=== PATIENT | male | born 1985 | race Two or more races ===

== ENCOUNTER → 2017-09-24 | Emergency (ER) | payer OTHER ==
[~2017-09-24] VITALS: Ht 180.3 cm; Wt 90.7 kg
[~2017-09-24] MED LIST: BUPROPION XL300 MG ORAL; GABAPENTIN600 MG ORAL; HYDROcodone/Acetamin 7.5/325 tab ORAL ONE; IBUPROFEN600 MG ORAL; NORCO 5-325 TA1 EACH ORAL; TRAZODONE HCL150 MG ORAL
[2017-09-24 17:16] VITALS: BP 105/65
--- NOTE | 2017-09-24 18:23 | Emergency Room Report ---
History of Present Illness General Chief Complaint: Lower Extremity Injury Source: Patient Present Illness HPI 32-year-old male presents to the emergency department complaining of 8/10 in severity acute onset localized pain to the right lateral knee x2 hours. Patient states that he was jogging and he felt a pop in the knee and had acute onset of this pain. Patient reports pain is exacerbated upon weightbearing and full flexion of his knee. Patient states that approximately 2 years ago he had knee injury with ligamental tear and meniscus tear that required surgery. He reports some mild swelling he states tenderness is primarily in the anterior portion of the knee. Denies trauma or fall otherwise. Denies numbness tingling or loss of sensation or gross motor movements of the extremities, incontinence of bowel or bladder. Denies CP, Palpitations, LOC, AMS, dizziness, Changes in Vision, Sensation, paresthesias, or a sudden severe headache. Allergies: Coded Allergies: AMOXICILLIN (Verified Allergy, Unknown, 09/24/17) PENICILLINS (Verified Allergy, Unknown, 09/24/17) Patient History Past Medical History: see triage record Past Surgical History: none Pertinent Family History: none Reviewed Nursing Documentation: PMH: Agreed, PSxH: Agreed Nursing Documentation-PMH Past Medical History: No History, Except For Hx Cardiac Problems: No - meniscus tear Hx Hypertension: No Hx Pacemaker: No Hx Asthma: No Hx COPD: No Hx Diabetes: No Hx Gastrointestinal Problems: No Hx Dialysis: No History Of Psychiatric Problem: Yes - ANXIETY Hx Neurological Problems: No Hx Cerebrovascular Accident: No Hx Seizures: No Review of Systems All Other Systems: negative except mentioned in HPI Physical Exam Vital Signs Date Time Temp Pulse Resp B/P (MAP) Pulse Ox O2 Delivery O2 Flow Rate FiO2 09/24/17 17:16 98.1 102 18 105/65 100 Room Air 98.1 Sp02 EP Interpretation: reviewed, normal General Appearance: no apparent distress, alert, GCS 15, non-toxic Head: normocephalic, atraumatic ENT: hearing grossly normal, normal voice Neck: full range of motion Respiratory: lungs clear, normal breath sounds, speaking full sentences Cardiovascular #1: regular rate, rhythm Musculoskeletal: back normal, normal range of motion, tender - TTP to the anterior and lateral right knee, mild swelling noted, FROM with pain upon full flexion, no significant increased laxity, negative anterior and posterior drawer sign. Neurologic: alert, oriented x3, responsive, motor strength/tone normal, sensory intact, speech normal, grossly normal Psychiatric: judgement/insight normal Skin: normal color, no rash, warm/dry, well hydrated Medical Decision Making [place] Attestation Dr. Calhoun is my supervising Physician whom patient management has been discussed with. Diagnostic Impression: Primary Impression: Right knee sprain Qualified Codes: S83.91XA - Sprain of unspecified site of right knee, initial encounter Additional Impression: Knee pain, acute Qualified Codes: M25.561 - Pain in right knee ER Course 32-year-old male presents to the emergency department complaining of 8/10 in severity acute onset localized pain to the right lateral knee x2 hours. Patient states that he was jogging and he felt a pop in the knee and had acute onset of this pain. Patient reports pain is exacerbated upon weightbearing and full flexion of his knee. Patient states that approximately 2 years ago he had knee injury with ligamental tear and meniscus tear that required surgery. He reports some mild swelling he states tenderness is primarily in the anterior portion of the knee. Denies trauma or fall otherwise. Denies numbness tingling or loss of sensation or gross motor movements of the extremities, incontinence of bowel or bladder. Denies CP, Palpitations, LOC, AMS, dizziness, Changes in Vision, Sensation, paresthesias, or a sudden severe headache. Ddx considered but are not limited to Fracture, dislocation, contusion, Sprain/ Strain/Spasm, Epidural abscess, Neoplastic mets. Vital signs: are WNL, pt. is afebrile H&PE are most consistent with musculoskeletal injury will perform imaging to r/ o fractures/dislocations. ORDERS: - X-ray Right Knee - negative for fx, Dislocation, or significant soft tissue injury, Visible hardware in the tibia and femur, no obvious effusion - per preliminary read in ED, and signed by ISRAEL Lucio, my supervising physician has reviewed, and agrees with my interpretation. ED INTERVENTIONS: - [place] PO - Knee Immobilizer Splint applied to the right knee by generation engineering technologist. Pt. remains neurovascularly intact. --Patient is provided with crutches and instructed on their use DISCHARGE: At this time pt. is stable for d/c to home. Will provide printed patient care instructions, and any necessary prescriptions. Care plan and follow up instructions have been discussed with the patient prior to discharge. Other X-Ray Diagnostic Results Other X-Ray Diagnostic Results : X-Ray ordered: Right Knee # of Views/Limited Vs Complete: 3 View Indication: Pain PA Xray: Interpretation reviewed, by supervising MD, and agrees with findings. Interpretation: no dislocation, no soft tissue swelling, no fractures, other - hardware noted in the distal femur and tibia. Impression: No acute disease Electronically Signed by: Tamiko Lucio PA-C Last Vital Signs Date Time Temp Pulse Resp B/P (MAP) Pulse Ox O2 Delivery O2 Flow Rate FiO2 09/24/17 17:16 98.1 102 18 105/65 100 Room Air 98.1 Disposition: HOME, SELF-CARE Condition: Stable Scripts Ibuprofen* (MOTRIN*) 600 Mg Tablet 600 MG ORAL THREE TIMES A DAY, #30 TAB 0 Refills Prov: Tamiko Lucio 09/24/17 Hydrocodone Bit/Acetaminophen 5-325* (NORCO 5-325*) 1 Each Tablet 1 TAB ORAL Q6H Y for For Pain, #6 TAB 0 Refills Prov: Tamiko Lucio 09/24/17 Referrals: [facility],REFERRING (PCP) Patient Instructions: Knee Sprain Additional Instructions: Take medications as directed. Follow up with an [facility] in 3-5 days, even if your symptoms have resolved. --Please review list of primary care clinics, if you do not already have a primary care provider Return sooner to ED if new symptoms occur, or current symptoms become worse. Do not drink alcohol, drive, or operate heavy machinery while taking [place] as this may cause drowsiness. - Please note that this Emergency Department Report was dictated using [employer] supervisor technology software, occasionally this can lead to erroneous entry secondary to interpretation by the dictation equipment. Tamiko Lucio Sep 24, 2017 18:23
--- NOTE | 2017-09-25 08:46 | Diagnostic Imaging Report ---
Indication: Knee pain Technique: 3 views of the right knee Comparison: None Findings: There is a small suprapatellar effusion. There are anchor screws from presumed prior anterior cruciate ligament surgery. Multiple presumed intra-articular loose bodies are seen in the posterior joint. There are medial and lateral osteophytes. No acute fractures. No dislocations. Impression: No acute bony trauma Postsurgical changes as described Suspect small effusion Probable intra-articular loose bodies Degenerative changes as described
== END | disposition home or self-care (01) ==
LOC: EMR 17:36
DX: S83.91XA Sprain of unspecified site of right knee, initial encounter (principal); X50.0XXA Overexertion from strenuous movement or load, initial encounter; Y93.02 Activity, running; Y92.89 Other specified places as the place of occurrence of the external cause; F41.9 Anxiety disorder, unspecified; Z88.0 Allergy status to penicillin
CPT/HCPCS: 99283

== ENCOUNTER → 2019-02-22 | Emergency (ER) | payer MEDICAID, OTHER ==
[~2019-02-22] VITALS: Ht 180.3 cm; Wt 100.7 kg
[~2019-02-22] MED LIST changes: +FLONASE ALLERG9.9 ML NS; +GUAIFENESI100 MG/5 M ORAL; -HYDROcodone/Acetamin 7.5/325 tab ORAL ONE; +OTEZLA1 EAC1 PO
--- NOTE | 2019-02-22 14:00 | NUR ---
ED Nurse Note:' pt waslked in due to sore throat and nasal congestion started yesterday. pt denies fever. seen by otilio murray. will continue to monitor
[2019-02-22 14:08] VITALS: BP 133/94
--- NOTE | 2019-02-22 14:10 | Emergency Room Report ---
History of Present Illness General Chief Complaint: Sore Throat Source: Patient Present Illness HPI 33-year-old male with history of depression currently controlled with medication here complaining of 2 days of cough and congestion. Patient reports that every morning that he has been waking up in the past 2 days he feels buildup of mucus inside his mouth and irritation of throat. Denies productive cough. Denies fever and chills, wheezing, chest pain, shortness of breath, palpitation, abdominal pain nausea vomiting. Has not taken medication to alleviate his symptoms. Patient denies history of smoking Allergies: Coded Allergies: AMOXICILLIN (Verified Allergy, Unknown, 09/24/17) PENICILLINS (Verified Allergy, Unknown, 09/24/17) Patient History Past Medical History: see triage record Past Surgical History: unable to obtain Pertinent Family History: none Immunizations: UTD Reviewed Nursing Documentation: PMH: Agreed; PSxH: Agreed Nursing Documentation-PMH Past Medical History: No History, Except For Hx Cardiac Problems: No - meniscus tear Hx Hypertension: No Hx Pacemaker: No Hx Asthma: No Hx COPD: No Hx Diabetes: No Hx Gastrointestinal Problems: No Hx Dialysis: No Hx Neurological Problems: No Hx Cerebrovascular Accident: No Hx Seizures: No Review of Systems All Other Systems: negative except mentioned in HPI Physical Exam Vital Signs Date Time Temp Pulse Resp B/P (MAP) Pulse Ox O2 Delivery O2 Flow Rate FiO2 02/22/19 13:42 98.1 86 17 133/94 (107) 99 Room Air Sp02 EP Interpretation: reviewed, normal General Appearance: normal inspection, well appearing, no apparent distress, alert Head: normocephalic, atraumatic Eyes: bilateral eye normal inspection, bilateral eye PERRL ENT: normal ENT inspection, hearing grossly normal, normal pharynx, no angioedema, TMs + canals normal Neck: normal inspection, full range of motion, supple, thyroid normal, no meningismus Respiratory: normal inspection, chest non-tender, lungs clear, no rhonchi, no wheezing Cardiovascular #1: normal inspection, normal peripheral pulses, no edema, no murmur Gastrointestinal: normal inspection, non tender, soft Genitourinary: no CVA tenderness Musculoskeletal: normal inspection, back normal Neurologic: normal inspection, alert, oriented x3 Psychiatric: normal inspection, judgement/insight normal, memory normal Skin: no rash Lymphatic: normal inspection, no adenopathy Medical Decision Making PA Attestation All my diagnosis and treatment plans were reviewed ad discussed with my supervising physician Dr. Calhoun Diagnostic Impression: Primary Impression: URI (upper respiratory infection) ER Course 33-year-old male with history of depression currently controlled with medication here complaining of 2 days of cough and congestion. Patient reports that every morning that he has been waking up in the past 2 days he feels buildup of mucus inside his mouth and irritation of throat. Denies productive cough. Denies fever and chills, wheezing, chest pain, shortness of breath, palpitation, abdominal pain nausea vomiting. Has not taken medication to alleviate his symptoms. Patient denies history of smoking Ddx considered but are not limited to: strep pharyngitis, URI, tonsilitis, peritonsillar absacess, influneza Vital signs: are WNL, pt. is afebrile H&PE are most consistent with: Viral upper respiratory infection ORDERS: Flonase nasal spray, guaifenesin ED INTERVENTIONS: None required at this time. DISCHARGE: At this time pt. is stable for d/c to home. Will provide printed patient care instructions, and any necessary prescriptions. Care plan and follow up instructions have been discussed with the patient prior to discharge. Follow-up with the primary care provider take medication as noted avoid exposure to allergens. Last Vital Signs Date Time Temp Pulse Resp B/P (MAP) Pulse Ox O2 Delivery O2 Flow Rate FiO2 02/22/19 13:42 98.1 86 17 133/94 (107) 99 Room Air Disposition: HOME, SELF-CARE Condition: Stable Scripts Guaifenesin* (GUAIFENESIN) 100 Mg/5 Ml Liquid 5 ML ORAL Q4H, #120 ML 0 Refills Prov: Carrillo Wood 02/22/19 Fluticasone Propionate (Flonase Allergy Relief) 9.9 Ml Dierks.susp 2 PUFF NS BID for 10 Days, #1 ML Prov: Carrillo Wood 02/22/19 Patient Instructions: Upper Respiratory Infection, Adult Carrillo Wood Feb 22, 2019 14:10
[2019-02-22 14:21] VITALS: BP 133/94
--- NOTE | 2019-02-22 14:21 | NUR ---
ER DISCHARGE NOTE: Patient is cleared to be discharged per ERMD, pt is aox4, on room air, with stable vital signs. pt was given dc and prescription instructions, pt was able to verbalize understanding, pt id band removed without complications. pt is able to ambulate with steady gait. pt took all belongings.
== END | disposition home or self-care (01) ==
LOC: EMR 14:09
DX: J06.9 Acute upper respiratory infection, unspecified (principal); Z88.0 Allergy status to penicillin; F32.9 Major depressive disorder, single episode, unspecified
CPT/HCPCS: 99282

== ENCOUNTER 2020-02-27 20:19 | Emergency (ER) | payer MEDICAID, OTHER ==
[~2020-02-27] VITALS: Ht 180.3 cm; Wt 88.5 kg
--- NOTE | 2020-02-27 20:38 | Emergency Room Report ---
History of Present Illness General Chief Complaint: Lower Extremity Injury Source: Patient Present Illness HPI Disclaimer: Please note that this report is being documented using [employer] technology. This can lead to erroneous entry secondary to incorrect interpretation by the dictating instrument. HPI: 34-year-old male presents for evaluation of left foot pain and swelling. Symptoms present approximately 1 week. Cannot recall specific injury but may have twisted it. Pain is intermittent throughout the week and localized over the lateral aspect of the ankle and foot. Able to bear weight. Denies history of gout. Denies skin breakdown, redness, warmth, purulent drainage. No prior history of injury to this extremity. PMH: Denies PSH: Right ACL repair Allergies: Denied Social Hx: None Allergies: Coded Allergies: AMOXICILLIN (Verified Allergy, Unknown, 09/24/17) PENICILLINS (Verified Allergy, Unknown, 09/24/17) COVID-19 Screening Contact w/high risk pt: No Experienced COVID-19 symptoms?: No COVID-19 Testing performed JOB CAPTAIN: No Nursing Documentation-PMH Hx Cardiac Problems: No - meniscus tear, PSORIASIS Hx Hypertension: No Hx Pacemaker: No Hx Asthma: No Hx COPD: No Hx Diabetes: No Hx Gastrointestinal Problems: No Hx Dialysis: No Hx Neurological Problems: No Hx Cerebrovascular Accident: No Hx Seizures: No Review of Systems All Other Systems: negative except mentioned in HPI Physical Exam Vital Signs Date Time Temp Pulse Resp B/P (MAP) Pulse Ox O2 Delivery O2 Flow Rate FiO2 02/27/20 20:28 98.2 98 18 146/72 (96) 99 Room Air General: Awake and alert, no acute distress HEENT: NC/AT. EOMI. Resp: Normal work of breathing Skin: Intact. No abrasions, laceration or rash over the exposed skin MSK: Normal tone and bulk. Moving all extremities. Tenderness palpation over the anterior posterior aspect of the medial malleolus as well as the base of the fifth metatarsal and lower ankle. 2+ edema of the foot and mild edema around the ankle. No overlying skin breakdown. No warmth. Neuro: Awake and alert. Mentating appropriately Medical Decision Making Diagnostic Impression: Primary Impression: Ankle sprain Additional Impression: Foot swelling ER Course 34-year-old male presents for evaluation of pain and swelling the left foot and ankle. Cannot recall specific injury. X-rays were obtained but do not show obvious fracture or dislocation. There is some soft tissue swelling which may represent a strain or sprain. Patient was placed in [place] wrap and offered crutches but declined. He is ambulating without difficulty. We will discharged on NSAIDs. Follow-up with clinic or return to the ED for new or worsening symptoms. He understands and agrees with this treatment plan. Other X-Ray Diagnostic Results Other X-Ray Diagnostic Results #1: X-Ray ordered: Left ankle # of Views/Limited Vs Complete: Complete Indication: Pain Interpretation: no dislocation, no fractures, other - Moderate soft tissue swelling Impression: Other - Soft tissue swelling without obvious fracture Electronically Signed by: Electronically signed by Dr. Dg Canada Other X-Ray Diagnostic Results #2: X-Ray ordered: Left foot # of Views/Limited Vs Complete: Complete Indication: Pain Interpretation: no dislocation, no fractures, other - Soft tissue swelling Impression: Other - Soft tissue swelling without obvious fracture or dislocation Electronically Signed by: Electronically signed by Dr. Dg Canada Last Vital Signs Date Time Temp Pulse Resp B/P (MAP) Pulse Ox O2 Delivery O2 Flow Rate FiO2 02/27/20 20:28 98.2 98 18 146/72 (96) 99 Room Air Disposition: HOME, SELF-CARE Condition: Stable Scripts Ibuprofen* (MOTRIN*) 600 Mg Tablet 600 MG ORAL Q6H PRN for For Pain, #30 TAB 0 Refills Prov: Dg Canada MD 02/27/20 Dg Canada MD Feb 27, 2020 20:38
[2020-02-27] MEDS ORDERED: IBUPROFEN600 M1 ORAL (21:00)
[2020-02-27 21:10] VITALS: BP 132/68
--- NOTE | 2020-02-28 08:46 | Diagnostic Imaging Report ---
Indication: Left ankle swelling and pain Technique: 3 views of the left ankle Comparison: none Findings: There is soft tissue swelling overlying the lateral malleolus. No acute fractures. No dislocations. No osseous erosions. Impression: Lateral soft tissue swelling No acute bony abnormality
--- NOTE | 2020-02-28 08:47 | Diagnostic Imaging Report ---
Indication: Pain, trauma Technique: 3 views left foot Comparison: none Findings: No acute fractures. No dislocations. Joint spaces are preserved. Impression: Negative
== END 2020-02-27 21:10 | disposition home or self-care (01) ==
LOC: EMR 20:38
DX: S93.402A Sprain of unspecified ligament of left ankle, initial encounter (principal); R22.42 Localized swelling, mass and lump, left lower limb; X58.XXXA Exposure to other specified factors, initial encounter; Y92.9 Unspecified place or not applicable; Z88.0 Allergy status to penicillin; L40.9 Psoriasis, unspecified
CPT/HCPCS: 73610; 73630; Z7502; 99284

== ENCOUNTER 2020-06-11 21:06 | Emergency (ER) | payer OTHER ==
[~2020-06-11] VITALS: Ht 180.3 cm; Wt 81.6 kg
[~2020-06-11 21:06] MED LIST changes: +IBUPROFEN600 M1 ORAL
[2020-06-11] MEDS ORDERED: LORazepam 1mg tab ORAL ONE (21:30)
--- NOTE | 2020-06-11 21:35 | NUR ---
ED Nurse Note:Recieved pt from hme with c/o not sleeping for past 2 days, denies cp, sob or any other complaint, states has hx of anxiety and panic ttacks, deneis pain.
--- NOTE | 2020-06-11 21:52 | Emergency Room Report ---
History of Present Illness General Chief Complaint: Behavioral Complaint Source: Patient Present Illness HPI 34-year-old male here with anxiety. Patient says that he has had to stay awake for several days because he has been "fighting with my girlfriend" and so he took several Adderall earlier in the night. Says that he is now having severe anxiety which feels normal for his usual panic attacks. Does not take any medications. No SI or HI or hallucinations. Feels his heart racing but feels as though this is secondary to his anxiety. No fevers, chills, chest pain, shortness of breath, back pain, abdominal pain, nausea, vomiting, diarrhea, dysuria. Allergies: Coded Allergies: AMOXICILLIN (Verified Allergy, Unknown, 09/24/17) PENICILLINS (Verified Allergy, Unknown, 09/24/17) COVID-19 Screening Contact w/high risk pt: No Experienced COVID-19 symptoms?: No COVID-19 Testing performed BUILDING CLEANER: No Nursing Documentation-PMH Hx Cardiac Problems: No - meniscus tear, PSORIASIS Hx Hypertension: No Hx Pacemaker: No Hx Asthma: No Hx COPD: No Hx Diabetes: No Hx Gastrointestinal Problems: No Hx Dialysis: No History Of Psychiatric Problem: Yes - panic attacks Hx Neurological Problems: No Hx Cerebrovascular Accident: No Hx Seizures: No Review of Systems All Other Systems: negative except mentioned in HPI Physical Exam Vital Signs Date Time Temp Pulse Resp B/P (MAP) Pulse Ox O2 Delivery O2 Flow Rate FiO2 06/11/20 21:23 98.2 118 22 172/117 (135) 99 Room Air Sp02 EP Interpretation: reviewed, normal General Appearance: no apparent distress, alert, non-toxic Head: normocephalic, atraumatic Eyes: bilateral eye normal inspection, bilateral eye PERRL ENT: hearing grossly normal, normal pharynx, no angioedema, normal voice Neck: full range of motion, supple/symm/no masses Respiratory: chest non-tender, lungs clear, normal breath sounds, speaking full sentences Cardiovascular #1: regular rate, rhythm, no edema Cardiovascular #2: 2+ carotid (R), 2+ carotid (L), 2+ radial (R), 2+ radial (L), 2+ dorsalis pedis (R), 2+ dorsalis pedis (L) Gastrointestinal: normal bowel sounds, non tender, soft, non-distended, no guarding, no rebound Rectal: deferred Genitourinary: normal inspection, no CVA tenderness Musculoskeletal: back normal, normal range of motion, gait/station normal, non- tender Neurologic: alert, motor strength/tone normal, oriented x3, sensory intact, responsive, speech normal Psychiatric: judgement/insight normal, memory normal, mood/affect normal, no suicidal/homicidal ideation, anxious, other - Appears anxious but is cooperative and answers questions appropriately Skin: other - Eczematous skin changes on the bilateral elbows Lymphatic: no adenopathy Medical Decision Making Diagnostic Impression: Primary Impression: Anxiety Additional Impression: Panic attack ER Course EKG: NSR, no ischemia, intervals WNL. No ectopy. rate 95 bpm Rhythm strip: patient monitored for arrhythmias - no malignant dysrhythmias, runs of PVCs, nor pauses noted 34-year-old male here with panic attack. Patient says that he has been undergoing a lot of stress recently. Denied homicidal or suicidal ideation or hallucinations. He had normal physical examination. EKG was unremarkable. Patient admitted to taking Adderall earlier today. He was told to abstain from drugs and alcohol. Was given 2 mg of Ativan p.o. with good resolution of his symptoms. Given a prescription for several dose of Ativan to use as needed. We will follow-up with her primary care provider. Discharged in stable condition. Last Vital Signs Date Time Temp Pulse Resp B/P (MAP) Pulse Ox O2 Delivery O2 Flow Rate FiO2 06/11/20 21:36 118 22 172/117 99 06/11/20 21:23 98.2 Room Air Scripts Lorazepam* (ATIVAN*) 1 Mg Tablet 1 MG ORAL BEDTIME, #5 TAB Prov: Carroll Roblero M.D. 06/11/20 Carroll Roblero M.D. Jun 11, 2020 21:52
[2020-06-11 22:00] VITALS: BP 158/101
[2020-06-11] MEDS ORDERED: ATIVAN1 MG ORAL (22:07)
[2020-06-11 22:30] VITALS: BP 144/88
[2020-06-11 22:35] VITALS: BP 158/101
--- NOTE | 2020-06-13 04:10 | Cardiology Report ---
APPROVED REPORT EKG Measurement Heart [id number] <Conclusion> Normal sinus rhythm Normal ECG
== END 2020-06-11 22:35 | disposition home or self-care (01) ==
LOC: EMR 21:30
DX: F41.9 Anxiety disorder, unspecified (principal); F41.0 Panic disorder [episodic paroxysmal anxiety]; Z88.0 Allergy status to penicillin; L40.9 Psoriasis, unspecified
CPT/HCPCS: 93005; Z7502; 99283